=== PATIENT | male | born 1940 | race Caucasian/White ===

== ENCOUNTER → 2016-08-18 12:41 | Outpatient (CLI) | payer MEDICARE, BC ==
[2013-08-11 07:50] VITALS: BMI 28.1
[~2016-08-18 12:41] MED LIST: ASPIRIN EC81 MG PO; ATARAX; ATARAX 25 MG TA25 MG PO; LOPRESSOR25 MG PO; NEXIUM20 MG; NEXIUM20 MG PO; NITROSTAT0.4 MG SL; PLAVIX75 MG PO; PRAVACHOL40 MG PO; RED YEAST RICE600 MG; [UNRECOGNIZED DRUG - OTHER]
== END | disposition home or self-care (01) ==
LOC: D.RT 12:41
DX: R05 Cough (principal); J45.998 Other asthma

== ENCOUNTER → 2016-09-15 14:09 | Outpatient (CLI) | payer MEDICARE, BC ==
[2013-08-11 07:50] VITALS: BMI 28.1
== END | disposition home or self-care (01) ==
LOC: D.US 14:09 → D.CT 17:30
DX: R51 Headache (principal); R42 Dizziness and giddiness; M79.1 Myalgia; M62.81 Muscle weakness (generalized)

== ENCOUNTER 2017-07-29 06:58 | Inpatient (IN) | payer MEDICARE, BC ==
[~2017-07-29] VITALS: Ht 177.8 cm; Wt 90.7 kg
[2017-07-29 08:35] LABS: BASOPHILS 0.1 % (0-2); EOSINOPHILS 0.3 % (0-7); HEMATOCRIT 52.6 % (42.0-54.0); HEMOGLOBIN 18.5 g/dL (13.5-17.5); IMMATURE GRANULOCYTES 0.2 % (0-5); LYMPHOCYTES 9.9 % (15-50); MCH 31.6 pg (26.0-34.0); MCHC 35.2 g/dL (31.0-37.0); MCV 89.9 fL (80.0-100.0); MEAN PLATELET VOLUME 10.8 fL (7.4-10.4); MONOCYTES 5.7 % (2-11); NEUTROPHILS 83.8 % (40-80); PLATELET COUNT 218 10x3/uL (130-400); RBC 5.85 10x6/uL (4.20-6.10); RDW 13.7 % (11.5-14.5); WBC 17.6 10x3/uL (4.8-10.8)
[2017-07-29 08:52] LABS: ALBUMIN 3.8 g/dL (3.4-5.0); ANION GAP 14.3 mmol/L (8-16); BILIRUBIN - TOTAL 0.9 mg/dL (0.2-1.3); CALCIUM 8.8 mg/dL (8.5-10.1); CARBON DIOXIDE 24.6 mmol/L (21.0-32.0); CREATININE - SERUM 1.3 mg/dL (0.6-1.3); POTASSIUM - SERUM 3.9 mmol/L (3.5-5.1); PROTEIN - SERUM 7.9 g/dL (6.4-8.2)
[2017-07-29 11:11] VITALS: BP 137/78; BMI 28.7
[2017-07-29 12:39] LABS: AMYLASE - SERUM 56 U/L (25-115); LIPASE 88 U/L (73-393)
[2017-07-29 16:02] VITALS: BP 129/66
[2017-07-29 20:31] VITALS: BP 117/60
[2017-07-30 05:43] LABS: BASOPHILS 0.1 % (0-2); EOSINOPHILS 0.9 % (0-7); HEMATOCRIT 45.6 % (42.0-54.0); HEMOGLOBIN 15.7 g/dL (13.5-17.5); IMMATURE GRANULOCYTES 0.2 % (0-5); LYMPHOCYTES 21.7 % (15-50); MCH 30.8 pg (26.0-34.0); MCHC 34.4 g/dL (31.0-37.0); MCV 89.6 fL (80.0-100.0); MEAN PLATELET VOLUME 11.7 fL (7.4-10.4); MONOCYTES 12.1 % (2-11); PLATELET COUNT 205 10x3/uL (130-400); RBC 5.09 10x6/uL (4.20-6.10); RDW 13.7 % (11.5-14.5); WBC 13.8 10x3/uL (4.8-10.8)
[2017-07-30 06:09] LABS: ALBUMIN 3.1 g/dL (3.4-5.0); ANION GAP 13.7 mmol/L (8-16); BILIRUBIN - TOTAL 0.9 mg/dL (0.2-1.3); CALCIUM 8.1 mg/dL (8.5-10.1); CARBON DIOXIDE 25.3 mmol/L (21.0-32.0); CREATININE - SERUM 1.3 mg/dL (0.6-1.3); PROTEIN - SERUM 6.7 g/dL (6.4-8.2)
[2017-07-30 06:20] VITALS: BP 103/57
[2017-07-30 06:44] LABS: APPEARANCE CLEAR (CLEAR); BACTERIA FEW /hpf (NONE SEEN); BILIRUBIN NEGATIVE (NEGATIVE); COLOR DK YELLOW (YELLOW); EPITHELIAL CELLS RARE /hpf (0-5); GLUCOSE NEGATIVE (NEGATIVE); KETONE NEGATIVE (NEGATIVE); MUCUS <1+ /lpf (NONE SEEN); NITRITE NEGATIVE (NEGATIVE); PROTEIN NEGATIVE (NEGATIVE); SPECIFIC GRAVITY 1.015 (1.005-1.020); UROBILINOGEN NORMAL (NORMAL); WHITE CELLS - URINE 0-5 /hpf (0-5)
[2017-07-30 08:10] VITALS: BP 133/69
[2017-07-30 12:33] VITALS: Ht 177.8 cm; Wt 90.7 kg
[2017-07-30 12:49] VITALS: BP 111/69
[2017-07-30 15:55] VITALS: BP 112/63
[2017-07-30 20:46] VITALS: BP 129/74
[2017-07-31 01:30] VITALS: BP 112/70
[2017-07-31 04:49] VITALS: BP 112/74
[2017-07-31 06:27] LABS: BASOPHILS 0.3 % (0-2); HEMATOCRIT 44.9 % (42.0-54.0); HEMOGLOBIN 15.5 g/dL (13.5-17.5); IMMATURE GRANULOCYTES 0.1 % (0-5); LYMPHOCYTES 22.2 % (15-50); MCHC 34.5 g/dL (31.0-37.0); MCV 89.8 fL (80.0-100.0); MEAN PLATELET VOLUME 11.3 fL (7.4-10.4); MONOCYTES 10.1 % (2-11); NEUTROPHILS 63.3 % (40-80); PLATELET COUNT 184 10x3/uL (130-400)
[2017-07-31 06:29] LABS: WBC 10.1 10x3/uL (4.8-10.8)
[2017-07-31 06:42] LABS: ALBUMIN 3.1 g/dL (3.4-5.0); ANION GAP 13.9 mmol/L (8-16); BILIRUBIN - TOTAL 0.6 mg/dL (0.2-1.3); CALCIUM 8.3 mg/dL (8.5-10.1); CARBON DIOXIDE 24.1 mmol/L (21.0-32.0); CREATININE - SERUM 1.4 mg/dL (0.6-1.3); PROTEIN - SERUM 6.7 g/dL (6.4-8.2)
[2017-07-31 08:25] VITALS: BP 141/80
[2017-07-31] MEDS ORDERED: LEVAQUIN750 MG PO (11:44)
[2017-07-31] MEDS ORDERED: FLAGYL500 MG PO (11:45)
[2017-07-31 12:38] VITALS: BP 140/79
[2017-07-31] MEDS ORDERED: NORCO 7.5/325 T1 TA1 PO (12:57)
== END 2017-07-31 13:46 | disposition home or self-care (01) | DRG 392 ==
LOC: D.ER 06:58 → D.MS 09:45
PROVIDERS: Family Medicine
DX: K57.92 Diverticulitis of intestine, part unspecified, without perforation or abscess without bleeding (principal); K52.9 Noninfective gastroenteritis and colitis, unspecified; E86.0 Dehydration; I10 Essential (primary) hypertension; R73.9 Hyperglycemia, unspecified; N28.1 Cyst of kidney, acquired; E78.5 Hyperlipidemia, unspecified

== ENCOUNTER 2017-12-31 14:59 | Emergency (ER) | payer MEDICARE, BC ==
[~2017-12-31] VITALS: Ht 177.8 cm; Wt 9.1 kg
--- NOTE | ~2017-12-31 | CN ---
PATIENT NAME:MARIIA CORDON MEDICAL RECORD: [id number] : 44 LOCATION:D.ER ADMIT DATE: ACCOUNT: [id number] CONSULTING PHYSICIAN: LUISITO OLMOS MD REFERRING PHYSICIAN: DIANE GUTIERRES MD DATE OF CONSULTATION: 12/31/2017 DIAGNOSES: 1. Chest pain, atypical. 2. Shortness of breath. 3. Coronary disease. 4. Previous PTCA and stent. 5. Hypertension. 6. Hyperlipidemia. HISTORY: Mr. Cordon presents with chest pain; however, it is atypical. It is positional with movement of his left shoulder. His EKG is normal. He is status post PTCA and stent, and pacemaker in 2010. Last cardiac catheterization was in 2013, this was normal. He continues to have the discomfort, but it is definitely positional with movement of the left arm and a sharp stabbing discomfort. Troponin is normal. PHYSICAL EXAMINATION: GENERAL APPEARANCE: Well-nourished, well-developed, appears stated age. Level of distress, comfortable. PSYCHIATRIC: Mental status, alert, normal affect. Orientation, oriented to time, place and person. EYES: Lids and conjunctiva, noninjected. No discharge, no pallor. ENT: Lips, teeth, gums, normal dentition. Oropharynx, no cyanosis, no pallor. NECK: Carotid arteries, bilateral normal upstroke, no bruits, no thrills. JUGULAR VEINS: No jugular venous pressure or distention. CERVICAL LYMPH NODES: Nontender, nonenlarged. THYROID: Not enlarged. Nontender. No nodules. LUNGS: Respiratory effort, unlabored. CHEST: Normal curvature. No thoracic deformity. No chest wall tenderness. Percussion, resonant. Auscultation, clear. No wheezes, no rales, no rhonchi. CARDIOVASCULAR: Precordial exam, nondisplaced. No heaves or pericardial thrills. Rate and rhythm, regular. Heart sounds, normal S1, normal S2. No S3, no gallop, no rub. Systolic murmur, not heard. Diastolic murmur, not heard. EXTREMITIES: No cyanosis, no edema. Peripheral pulses, full and equal in all extremities, except as noted. No bruits appreciated. ABDOMEN: Soft, nondistended. Normal aorta. No bruit. Nontender. No masses. Liver, nontender, no hepatomegaly. Spleen, nontender, no splenomegaly. MUSCULOSKELETAL: No joint tenderness. No joint swelling. No erythema. NEUROLOGICAL: Normal gait, normal strength, normal tone. SKIN: Warm and dry. OVERALL IMPRESSION: Chest pain, atypical. This is noncardiac in etiology, most likely musculoskeletal. No other cardiac workup or treatment is necessary. TRANSINT:[id number] Voice Confirmation ID: [id number] DOCUMENT ID: [id number] CONSULT REPORT [id number] MARIIA CORDON, LUISITO PORRAS at 1948 CC: [id number] DICTATION DATE: 12/31/17 180 [facility] [facility]ER: 12/31/17 190 DEP ER 12/31/17 [facility] [address] [id number]
[~2017-12-31 14:59] MED LIST changes: +FLAGYL500 MG PO; +LEVAQUIN750 MG PO; +NORCO 7.5/325 T1 TA1 PO
[2017-12-31 15:12] VITALS: Ht 177.8 cm; Wt 9.1 kg
[2017-12-31 15:57] LABS: BASOPHILS 0.6 % (0-2); EOSINOPHILS 3.8 % (0-7); HEMATOCRIT 46.4 % (42.0-54.0); HEMOGLOBIN 16.5 g/dL (13.5-17.5); IMMATURE GRANULOCYTES 0.3 % (0-5); LYMPHOCYTES 34.7 % (15-50); MCH 31.9 pg (26.0-34.0); MCHC 35.6 g/dL (31.0-37.0); MCV 89.7 fL (80.0-100.0); MEAN PLATELET VOLUME 10.9 fL (7.4-10.4); MONOCYTES 10.2 % (2-11); NEUTROPHILS 50.4 % (40-80); PLATELET COUNT 216 10x3/uL (130-400); RBC 5.17 10x6/uL (4.20-6.10); RDW 13.7 % (11.5-14.5); WBC 7.1 10x3/uL (4.8-10.8)
[2017-12-31 16:11] LABS: ALBUMIN 3.4 g/dL (3.4-5.0); ALKALINE PHOSPHATASE 43 U/L (46-116); ALT (SGPT) 25 U/L (10-68); BILIRUBIN - TOTAL 0.59 mg/dL (0.2-1.3); CALC OSMOLALITY 277 mosm/kg (275-300); CALCIUM 8.5 mg/dL (8.5-10.1); CARBON DIOXIDE 24.8 mmol/L (21.0-32.0); CHLORIDE - SERUM 106 mmol/L (98-107); GLUCOSE 96 mg/dL (74-106); POTASSIUM - SERUM 4.1 mmol/L (3.5-5.1); PROTEIN - SERUM 7.1 g/dL (6.4-8.2); SODIUM 139 mmol/L (136-145); UREA NITROGEN 12 mg/dL (7-18); eGFR NON AFRICAN AMERICAN 77 mL/min (90-120)
[2017-12-31 16:39] LABS: CKMB 0.9 U/L (0.0-3.6); CREATINE KINASE 45 UL (21-232); PRO BNP 72 pg/mL (0-450); TROPONIN-I < 0.017 ng/mL (0.000-0.060)
[2017-12-31 17:57] VITALS: BP 140/85
[2017-12-31] MEDS ORDERED: OMEPRAZOLE40 MG PO (18:44)
== END 2017-12-31 18:52 | disposition home or self-care (01) ==
LOC: D.ER 14:59
PROVIDERS: Family Medicine
DX: R07.9 Chest pain, unspecified (principal); I25.10 Atherosclerotic heart disease of native coronary artery without angina pectoris; I10 Essential (primary) hypertension

== ENCOUNTER → 2018-07-19 09:40 | Outpatient (CLI) | payer MEDICARE, BC ==
[~2018-07-19 09:40] MED LIST changes: +OMEPRAZOLE40 MG PO
== END | disposition home or self-care (01) ==
LOC: D.RT 09:40
PROVIDERS: ATTEND Internal Medicine Pulmonary Disease
DX: J45.991 Cough variant asthma (principal)